=== PATIENT | female | born 1965 | race Caucasian/White ===

== ENCOUNTER 2019-06-30 11:44 | Outpatient (CLI) | payer BC, MEDICAID, SELFPAY ==
[2019-06-30 12:26] LABS: Basophils % 0.6 %; Eosinophils # 0.1 10^3/uL (0.0-0.8); Hematocrit 41.2 % (37.0-47.0); Hemoglobin 13.6 g/dL (11.5-15.3); Lymphocytes # 1.3 10^3/uL (0.8-4.8); Lymphocytes % 25.6 %; Mean Corpuscular Hemoglobin 30.9 pg (28.0-34.0); Mean Corpuscular Volume 93.6 fL (81-99); Mean Platelet Volume 10.2 fL (7.4-10.4); Monocytes # 0.5 10^3/uL (0.2-0.9); Monocytes % 9.6 %; Neutrophils # 3.2 10^3/uL (1.8-7.7); Neutrophils % 62.8 %; Nucleated Red Blood Cells % 0 %; Platelet Count 289 10^3/cmm (130-400); Red Cell Distribution Width 11.8 % (12.1-15.1); White Blood Count 5.1 10^3/uL (4.0-10.0)
[2019-06-30 12:38] LABS: Alanine Aminotransferase 16 U/L (0-33); Albumin Level 4.5 g/dL (3.5-5.2); Alkaline Phosphatase 77 IU/L (35-105); Anion Gap 16.1 (5-19); Aspartate Amino Transferase 21 U/L (0-32); Blood Urea Nitrogen 10 mg/dL (6-20); Calcium 10.1 mg/dL (8.5-10.5); Carbon Dioxide 29 mmol/L (22-29); Chloride 98 mmol/L (98-107); Globulin 3.1 g/dL (1.3-4.6); Glomerular Filtration Rate 128.1 mL/min (90-130); Glucose 109 mg/dL (65-115); Potassium 4.1 mmol/L (3.5-5.1); Sodium 139 mmol/L (136-145); Total Bilirubin 0.4 mg/dL (0.15-1.2); Total Protein 7.6 g/dL (6.6-8.7)
--- NOTE | 2019-07-04 09:15 | ONC FU_ITS ---
Dr. Poe Patient Follow-Up Note Patient: Elsy Pohenix Unit #: [id number]: 1965 Dicatated By: Luis Poe M.D.Date of Visit:Jun 30, 2019 Onc Med Follow-up/Prog Note Chief Complaint: Breast cancer. History of Present Illness: This is a 53 year-old woman with grade 3 invasive ductal carcinoma of the left breast, stage IIA (T2, N0, M0), ER/PA negative and HER-2/sudhir nonamplified. This patient has been in good general health. She had presented with a painful lump in the lower medial left breast, which she first noticed at Thanksgiving time. She had been getting screening mammograms every 6 months, apparently due to having dense breast tissue not because of any suspicious findings. She had further evaluation with bilateral digital diagnostic mammogram and left breast ultrasound on 04/16/2016. The mammogram showed no findings other than some very nonspecific density in the deep inferomedial aspect of the left breast, thought perhaps to be the anterior aspect of a mass. Ultrasound showed an ill defined irregular 19 mm solid mass deeply in the inferomedial left breast composition against the chest wall. Evaluation of the axilla revealed only normal sized, benign-appearing lymph nodes. She will underwent ultrasound-guided needle core biopsy of the mass on 04/25/2016. Pathology showed grade 3 invasive ductal carcinoma. The breast prognostic profile showed the tumor to be ER and PA negative, both at 0%. HER-2/sudhir also was negative (0). The Ki-67 was high at 88%. Dr Poe had seen her initially on 05/15/2016. At that time she indicated she was not interested in pursuing breast conservation management. Her preference was to have bilateral mastectomy. There appeared to be no indication for neoadjuvant chemotherapy. On 06/18/2016 she underwent left total mastectomy with sentinel left axillary lymph node biopsy and prophylactic right simple mastectomy. Pathology showed poorly differentiated invasive ductal carcinoma with prominent lymphocytic response. It measured 2.4 cm in maximum diameter. The tumor was located 0.5 cm from the inferior margin, 1.5 cm from the deep margin, and greater than 8 cm from the superior margin. There was no involvement into intraparenchymal lymph nodes and there was no involvement in 1 sentinel axillary lymph node. Her disease thus was stage IIA (T2, N0, M0). She was given adjuvant chemotherapy with 4 cycles of cyclophosphamide/docetaxel. She received her cycle 1 treatment on 07/16/2016. It was complicated by grade 4 neutropenia, but she recovered uneventfully with Neupogen. She received prophylaxis with Neulasta on cycles 2 and 3, and her blood counts remained adequate. She completed her 4th cycle of treatment on 09/24/2016. She had subsequently become aware of a nodule in left breast reconstruction. Ultrsound was consistent with seroma or possibly abscess. She was managed expectantly. Her medical history is otherwise unremarkable. She has no other ongoing medical illnesses. She is a nonsmoker. She is 3/para 3, and she was 17 years old with her first . Her last menstrual period was in December 2014, and she has been having hot flashes. She had no oral contraceptive use. Postmenopausal hormone use was limited to occasional use of Premarin vaginal cream. INTERIM HISTORY: A repeat left breast ultrasound on 05/26/2017 showed no suspicious findings. She continued on observation/expectant management. She is seen for a scheduled visit. She has been feeling pretty good generally. She is in the process of changing jobs, and her energy has been somewhat better. She has normal activity. ECOG score is 0. Her appetite is good. She has not had fever or night sweats, but she does have hot flashes at night. She has no shortness of breath, cough, or chest pain. She has no GI or complaints. She continues to have pain in her back and in her knees. She also has some generalized pain from working. She has no focal neurologic symptoms. Medications: ALPRAZolam 1 Tablet (of 0.5 mg) Oral b.i.d., Docusate Sodium 1 Tablet (of 100 mg) Oral daily PRN, Oxycodone-Acetaminophen 1 (10-325 mg) Tablet Oral q 4 hours PRN Allergies: No Known Allergies. Review of Systems: Constitutional - Her energy is somewhat better. She has normal activity. Her appetite is good and her weight is up a few pounds since her last visit. No fever, chills, or night sweat. She has hot flashes at night. ECOG score is 0, ENMT - No sinus congestion/drainage. No mouth sores. No sore throat or difficulty swallowing, Hematologic/Lymphatic - No abnormal bruising or bleeding, Respiratory - No shortness of breath. No cough. No pleuritic pain or hemoptysis, Cardiovascular - No angina pain. No palpitations, Gastrointestinal - No nausea or vomiting. No heartburn or acid reflux. No diarrhea or constipation. No blood in the stool or black stools, Genitourinary (F) - No dysuria or hematuria. No urinary frequency. No urgency or incontinence, Musculoskeletal - She has generalized pain, but mainly in her back and in her knees. It is associated with work, Integumentary - No skin complications, Neurologic - She has occasional headaches. No dizziness. No numbness/paresthesias or other focal neurologic symptoms, Psychiatric - She has some anxiety. No depression. No insomnia. Vital Signs: Performed on Jun 30, 2019 13:26 Height - 64.00 in Weight - 147.6 lbs (HIGH) BSA - 1.72 sq.m BMI - 25.34 Temperature - 97.6 F (LOW) Pulse - 90 /min Respiration - 18 /min BP - 129/88 mm(hg) O2 Sat - 100 % Pain - 0 Physical Examination: Constitutional - She looks good generally, Eyes - Sclerae nonicteric. Conjunctivae clear, ENMT - No lesions noted in the oral cavity, Hematologic/Lymphatic - No cervical or clavicular adenopathy, Respiratory - Lungs are clear with good air movement bilaterally, Cardiovascular - Heart rhythm is regular. There is no murmur, gallop, or rub noted, Breasts - There are no lesions noted in the left chest wall/reconstruction. There is no axillary adenopathy noted, Abdomen - Soft. Liver and spleen are not enlarged. There is no abdominal mass or ascites noted and there is no inguinal adenopathy, Extremities - No edema. Dorsalis pedis pulses are palpable bilaterally, Neurologic - No focal neurologic deficits noted. Lab/Imaging: Test performed on Jun 30, 2019 11:59 Sodium 139 mmol/L Potassium 4.1 mmol/L Chloride 98 mmol/L CO2 29 mmol/L Anion Gap 16.1 BUN 10 mg/dL Creatinine 0.5 mg/dL Cr Clearance (Est) 135.6400 mL/min eGFR 128.1 mL/min Glucose 109 mg/dL Calcium 10.1 mg/dL Protein, Total 7.6 g/dL Albumin 4.5 g/dL Globulin 3.1 g/dL Bilirubin, Total 0.4 mg/dL ALT (SGPT) 16 U/L AST (SGOT) 21 U/L Alkaline Phosphatase 77 IU/L WBC 5.1 10 3/uL RBC 4.40 10 6/uL HGB 13.6 g/dL HCT 41.2 % MCV 93.6 fL MCH 30.9 pg MCHC 33.0 g/dL RDW 11.8 % Platelet Count 289 10 3/cmm MPV 10.2 fL Neutrophils 3.2 10 3/uL Lymphocytes 1.3 10 3/uL Monocytes 0.5 10 3/uL Eosinophils 0.1 10 3/uL Basophils 0.0 10 3/uL Neutrophil % 62.8 % Lymphocyte % 25.6 % Monocyte % 9.6 % Eosinophil % 1.0 % Basophils % 0.6 % Impression: 1. This is a perimenopausal woman with grade 3 invasive ductal carcinoma of the left breast, stage IIA (T2, N0, M0), ER/PA negative and HER-2/sudhir nonamplified. 2. She underwent left total mastectomy with sentinel left axillary lymph node biopsy and prophylactic right simple mastectomy on 06/18/2016. 3. She was given adjuvant chemotherapy with 4 cycles of cyclophosphamide/docetaxel, completed on 09/24/2016. Her first cycle was complicated by grade 4 neutropenia, but she recovered uneventfully with Neupogen. With cycles 2, 3, and 4 her counts remained adequate with Neulasta prophylaxis. Other toxicity was limited to mild fatigue and mild nausea. She did have a 1 week delay with cycle 4, but that was at her own discretion. 4. She has chronic anxiety. Following completion of the chemotherapy she had presented with a palpable nodule in the left breast reconstruction. Ultrasound was consistent with seroma or possibly abscess. She was managed expectantly, and it subsequently resolved. She has since then remained on observation. During follow-up she continued to have fatigue and she also had some ongoing problems with anxiety/depression. Those symptoms have gradually improved, though she still has issues with anxiety. During subsequent follow-up she has had pain at times and there left chest wall/axillary area. She also has had some other musculoskeletal pain, most of which has been work related. Overall, she has been doing well clinically with no evidence of recurrence of the breast cancer. Plan: She remains on observation/expectant management. I will see her again in 6 months, or sooner as needed. Signed By: Luis Poe M.D. <<Signature on File>>
== END 2019-06-30 11:45 | disposition home or self-care (01) ==
LOC: ONCMED 11:45
PROVIDERS: Family Provider Nurse Practitioner Family; PCP Nurse Practitioner Family; Visit Provider Internal Medicine Medical Oncology
DX: Z08 Encounter for follow-up examination after completed treatment for malignant neoplasm (principal); Z85.3 Personal history of malignant neoplasm of breast; F41.9 Anxiety disorder, unspecified; Z79.891 Long term (current) use of opiate analgesic; Z92.21 Personal history of antineoplastic chemotherapy; Z90.13 Acquired absence of bilateral breasts and nipples
CPT/HCPCS: 36415; 80053; 85025; G0463

== ENCOUNTER 2019-12-29 12:54 | Outpatient (CLI) | payer MEDICAID, SELFPAY ==
[2019-12-29 13:21] LABS: Basophils # 0.1 10^3/uL (0.0-0.1); Basophils % 1.1 %; Eosinophils # 0.1 10^3/uL (0.0-0.8); Eosinophils % 1.5 %; Hematocrit 40.8 % (37.0-47.0); Hemoglobin 12.6 g/dL (11.5-15.3); Lymphocytes # 1.8 10^3/uL (0.8-4.8); Lymphocytes % 32.7 %; Mean Corpuscular HGB Conc 30.9 g/dL (30.0-36.0); Mean Corpuscular Hemoglobin 30.7 pg (28.0-34.0); Mean Corpuscular Volume 99.3 fL (81-99); Mean Platelet Volume 10.4 fL (7.4-10.4); Monocytes # 0.6 10^3/uL (0.2-0.9); Monocytes % 10.7 %; Neutrophils # 2.97 10^3/uL (1.8-7.7); Neutrophils % 53.8 %; Nucleated Red Blood Cells % 0 %; Platelet Count 279 10^3/cmm (130-400); Red Blood Count 4.11 10^6/uL (4.1-5.3); Red Cell Distribution Width 11.7 % (12.1-15.1); White Blood Count 5.5 10^3/uL (4.0-10.0)
[2019-12-29 13:41] LABS: Alanine Aminotransferase 16 U/L (0-33); Albumin Level 4.4 g/dL (3.5-5.2); Alkaline Phosphatase 67 IU/L (35-105); Anion Gap 12.1 (5-19); Aspartate Amino Transferase 25 U/L (0-32); Blood Urea Nitrogen 14 mg/dL (6-20); Calcium 9.4 mg/dL (8.5-10.5); Carbon Dioxide 29 mmol/L (22-29); Chloride 101 mmol/L (98-107); Globulin 2.5 g/dL (1.3-4.6); Glomerular Filtration Rate 86.6 mL/min (90-130); Glucose 106 mg/dL (65-115); Osmolality Calculated 283 mOsm/kg (285-295); Potassium 4.1 mmol/L (3.5-5.1); Sodium 138 mmol/L (136-145); Total Bilirubin 0.3 mg/dL (0.15-1.2); Total Protein 6.9 g/dL (6.6-8.7)
--- NOTE | 2019-12-31 18:51 | ONC FU_ITS ---
Dr. Poe Patient Follow-Up Note Patient: Elsy Phoenix Unit #: [id number]: 1965 Dicatated By: Luis Poe M.D.Date of Visit:Dec 29, 2019 Onc Med Follow-up/Prog Note Chief Complaint: Breast cancer. History of Present Illness: This is a 54 year-old woman with grade 3 invasive ductal carcinoma of the left breast, stage IIA (T2, N0, M0), ER/VT negative and HER-2/sudhir nonamplified. This patient has been in good general health. She had presented with a painful lump in the lower medial left breast, which she first noticed at Thanksgiving time. She had been getting screening mammograms every 6 months, apparently due to having dense breast tissue not because of any suspicious findings. She had further evaluation with bilateral digital diagnostic mammogram and left breast ultrasound on 04/16/2016. The mammogram showed no findings other than some very nonspecific density in the deep inferomedial aspect of the left breast, thought perhaps to be the anterior aspect of a mass. Ultrasound showed an ill defined irregular 19 mm solid mass deeply in the inferomedial left breast composition against the chest wall. Evaluation of the axilla revealed only normal sized, benign-appearing lymph nodes. She will underwent ultrasound-guided needle core biopsy of the mass on 04/25/2016. Pathology showed grade 3 invasive ductal carcinoma. The breast prognostic profile showed the tumor to be ER and VT negative, both at 0%. HER-2/sudhir also was negative (0). The Ki-67 was high at 88%. Dr Poe had seen her initially on 05/15/2016. At that time she indicated she was not interested in pursuing breast conservation management. Her preference was to have bilateral mastectomy. There appeared to be no indication for neoadjuvant chemotherapy. On 06/18/2016 she underwent left total mastectomy with sentinel left axillary lymph node biopsy and prophylactic right simple mastectomy. Pathology showed poorly differentiated invasive ductal carcinoma with prominent lymphocytic response. It measured 2.4 cm in maximum diameter. The tumor was located 0.5 cm from the inferior margin, 1.5 cm from the deep margin, and greater than 8 cm from the superior margin. There was no involvement into intraparenchymal lymph nodes and there was no involvement in 1 sentinel axillary lymph node. Her disease thus was stage IIA (T2, N0, M0). She was given adjuvant chemotherapy with 4 cycles of cyclophosphamide/docetaxel. She received her cycle 1 treatment on 07/16/2016. It was complicated by grade 4 neutropenia, but she recovered uneventfully with Neupogen. She received prophylaxis with Neulasta on cycles 2 and 3, and her blood counts remained adequate. She completed her 4th cycle of treatment on 09/24/2016. She had subsequently become aware of a nodule in left breast reconstruction. Ultrsound was consistent with seroma or possibly abscess. It resolved with conservative management. She was then followed on observation for the breast cancer. Her medical history is otherwise unremarkable. She has no other ongoing medical illnesses. She is a nonsmoker. She is 3/para 3, and she was 17 years old with her first . Her last menstrual period was in December 2014. She had no oral contraceptive use. Postmenopausal hormone use was limited to occasional use of Premarin vaginal cream. INTERIM HISTORY: She is seen for a scheduled visit. She has been feeling pretty good generally. Her main complaint is that she has been having more anxiety. She has had episodes in which she has woken up at night feeling panicked. She has good energy, and she has gone back to work. ECOG score is 0. She has good appetite. She has not had fever. She still has some hot flashes and sweating. She has no shortness of breath, cough, or chest pain. She has had some heartburn, mainly at nighttime. She has no other GI or complaints. She does have some pain in her knees. She has no other joint or bone pain. She does not complain of headache or dizziness. She has no focal neurologic symptoms. Medications: ALPRAZolam 1 Tablet (of 0.5 mg) Oral b.i.d., Docusate Sodium 1 Tablet (of 100 mg) Oral daily PRN, Oxycodone-Acetaminophen 1 (10-325 mg) Tablet Oral q 4 hours PRN Allergies: No Known Allergies. Review of Systems: Constitutional - She has good energy. She has gone back to work. Appetite is good and weight is stable. No fever. She does have hot flashes and sweating. ECOG score is 0, ENMT - No sinus congestion/drainage. No mouth sores. No sore throat or difficulty swallowing, Hematologic/Lymphatic - No abnormal bruising or bleeding, Respiratory - No shortness of breath. No cough. No pleuritic pain or hemoptysis, Cardiovascular - No angina pain. No palpitations, Gastrointestinal - No nausea or vomiting. She has some heartburn, usually at night. No diarrhea or constipation. No blood in the stool or black stools, Genitourinary (F) - No dysuria or hematuria. No urinary frequency. No urgency or incontinence, Musculoskeletal - She has pain in her knees. No other joint or bone pain, Integumentary - , Neurologic - No headache or dizziness. No numbness or tingling. No other focal neurologic symptoms, Psychiatric - She is having more anxiety. No depression. She does not sleep well. She has been waking up feeling panicked. Vital Signs: Performed on Dec 29, 2019 14:42 Height - 64.00 in Weight - 152.2 lbs (HIGH) BSA - 1.74 sq.m BMI - 26.13 Temperature - 98.2 F (LOW) Pulse - 100 /min Respiration - 18 /min BP - 131/85 mm(hg) O2 Sat - 98 % Pain - 0 Fatigue - 0 Physical Examination: Constitutional - She looks good generally, Eyes - Sclerae nonicteric. Conjunctivae clear, ENMT - No lesions noted in the oral cavity, Hematologic/Lymphatic - No cervical, clavicular, or axillary adenopathy, Respiratory - Lungs are clear with good air movement bilaterally, Cardiovascular - Heart rhythm is regular. There is no murmur, gallop, or rub noted, Abdomen - Soft. Liver and spleen are not enlarged. There is no abdominal mass or ascites noted and there is no inguinal adenopathy, Extremities - No edema, Neurologic - No focal neurologic deficits noted. Lab/Imaging: Test performed on Dec 29, 2019 13:08 Sodium 138 mmol/L Potassium 4.1 mmol/L Chloride 101 mmol/L CO2 29 mmol/L Anion Gap 12.1 BUN 14 mg/dL Creatinine 0.7 mg/dL Cr Clearance (Est) 95.7500 mL/min eGFR 86.6 mL/min Glucose 106 mg/dL Calcium 9.4 mg/dL Protein, Total 6.9 g/dL Albumin 4.4 g/dL Globulin 2.5 g/dL Bilirubin, Total 0.3 mg/dL ALT (SGPT) 16 U/L AST (SGOT) 25 U/L Alkaline Phosphatase 67 IU/L WBC 5.5 10 3/uL RBC 4.11 10 6/uL HGB 12.6 g/dL HCT 40.8 % MCV 99.3 fL MCH 30.7 pg MCHC 30.9 g/dL RDW 11.7 % Platelet Count 279 10 3/cmm MPV 10.4 fL Neutrophils 2.97 10 3/uL Lymphocytes 1.8 10 3/uL Monocytes 0.6 10 3/uL Eosinophils 0.1 10 3/uL Basophils 0.1 10 3/uL Neutrophil % 53.8 % Lymphocyte % 32.7 % Monocyte % 10.7 % Eosinophil % 1.5 % Basophils % 1.1 % NRBC % 0 % Impression: 1. This is a perimenopausal woman with grade 3 invasive ductal carcinoma of the left breast, stage IIA (T2, N0, M0), ER/VT negative and HER-2/sudhir nonamplified. 2. She underwent left total mastectomy with sentinel left axillary lymph node biopsy and prophylactic right simple mastectomy on 06/18/2016. 3. She was given adjuvant chemotherapy with 4 cycles of cyclophosphamide/docetaxel, completed on 09/24/2016. Her first cycle was complicated by grade 4 neutropenia, but she recovered uneventfully with Neupogen. With cycles 2, 3, and 4 her counts remained adequate with Neulasta prophylaxis. Other toxicity was limited to mild fatigue and mild nausea. She did have a 1 week delay with cycle 4, but that was at her own discretion. 4. She has chronic anxiety. Following completion of the chemotherapy she had presented with a palpable nodule in the left breast reconstruction. Ultrasound was consistent with seroma or possibly abscess. She was managed expectantly, and it subsequently resolved. She has since then remained on observation. During follow-up she continued to have some fatigue and she also had some ongoing problems with anxiety/depression. Those symptoms had gradually improved, though she still had issues with anxiety. She also at times was having musculoskeletal pain, including the left chest area. Her pain, though, has been adequately managed with medication, and her energy level seems much better. She has been having more problems with her anxiety. There has been no evidence, though, of recurrence of the breast cancer. Plan: She remains on observation/expectant management for the breast cancer. I will have her restart citalopram 20 mg daily, and I will plan to escalate the dosage in 2 weeks if her anxiety symptoms are not improved. In the meantime, she will continue the alprazolam as needed. She will be scheduled for a follow-up visit in 6 months. Signed By: Luis Poe M.D. <<Signature on File>>
== END 2019-12-29 12:55 | disposition home or self-care (01) ==
LOC: ONCMED 12:56
PROVIDERS: PCP Nurse Practitioner Family; Visit Provider Internal Medicine Medical Oncology
DX: Z08 Encounter for follow-up examination after completed treatment for malignant neoplasm (principal); Z85.3 Personal history of malignant neoplasm of breast; F41.9 Anxiety disorder, unspecified; Z90.13 Acquired absence of bilateral breasts and nipples; Z92.21 Personal history of antineoplastic chemotherapy
CPT/HCPCS: 36415; 80053; 85025; 99214

== ENCOUNTER 2020-06-14 12:25 | Outpatient (CLI) | payer MEDICAID, SELFPAY ==
[2020-06-14 12:45] LABS: Basophils % 0.7 %; Eosinophils # 0.1 10^3/uL (0.0-0.8); Eosinophils % 1.8 %; Hematocrit 45.8 % (37.0-47.0); Hemoglobin 14.7 g/dL (11.5-15.3); Lymphocytes # 1.3 10^3/uL (0.8-4.8); Mean Corpuscular HGB Conc 32.1 g/dL (30.0-36.0); Mean Corpuscular Hemoglobin 31.3 pg (28.0-34.0); Mean Corpuscular Volume 97.4 fL (81-99); Mean Platelet Volume 10.2 fL (7.4-10.4); Monocytes # 0.5 10^3/uL (0.2-0.9); Monocytes % 11.9 %; Neutrophils # 2.55 10^3/uL (1.8-7.7); Neutrophils % 56.4 %; Nucleated Red Blood Cells % 0 %; Platelet Count 266 10^3/cmm (130-400); Red Cell Distribution Width 11.6 % (12.1-15.1); White Blood Count 4.5 10^3/uL (4.0-10.0)
[2020-06-14 13:11] LABS: Alanine Aminotransferase 19 U/L (0-33); Albumin Level 4.8 g/dL (3.5-5.2); Alkaline Phosphatase 85 IU/L (35-105); Blood Urea Nitrogen 12 mg/dL (6-20); Calcium 9.7 mg/dL (8.5-10.5); Carbon Dioxide 26 mmol/L (22-29); Chloride 99 mmol/L (98-107); Globulin 2.9 g/dL (1.3-4.6); Glomerular Filtration Rate 127.6 mL/min (90-130); Glucose 91 mg/dL (65-115); Osmolality Calculated 279 mOsm/kg (285-295); Sodium 135 mmol/L (136-145); Total Bilirubin 0.5 mg/dL (0.15-1.2); Total Protein 7.7 g/dL (6.6-8.7)
[2020-06-14 13:15] LABS: Anion Gap 13.9 (5-19); Aspartate Amino Transferase 24 U/L (0-32); Potassium 3.9 mmol/L (3.5-5.1)
--- NOTE | 2020-06-16 11:29 | ONC FU_ITS ---
Dr. Poe Patient Follow-Up Note Patient: Elsy Phoenix Unit #: [id number]: [id number] Dicatated By: Luis Poe M.D.Date of Visit:Jun 14, 2020 Onc Med Follow-up/Prog Note Chief Complaint: Breast cancer. History of Present Illness: This is a 54 year-old woman with grade 3 invasive ductal carcinoma of the left breast, stage IIA (T2, N0, M0), ER/AR negative and HER-2/sudhir nonamplified. This patient has been in good general health. She had presented with a painful lump in the lower medial left breast, which she first noticed at Thanksgiving time. She had been getting screening mammograms every 6 months, apparently due to having dense breast tissue not because of any suspicious findings. She had further evaluation with bilateral digital diagnostic mammogram and left breast ultrasound on 04/16/2016. The mammogram showed no findings other than some very nonspecific density in the deep inferomedial aspect of the left breast, thought perhaps to be the anterior aspect of a mass. Ultrasound showed an ill defined irregular 19 mm solid mass deeply in the inferomedial left breast composition against the chest wall. Evaluation of the axilla revealed only normal sized, benign-appearing lymph nodes. She will underwent ultrasound-guided needle core biopsy of the mass on 04/25/2016. Pathology showed grade 3 invasive ductal carcinoma. The breast prognostic profile showed the tumor to be ER and AR negative, both at 0%. HER-2/sudhir also was negative (0). The Ki-67 was high at 88%. I had seen her initially on 05/15/2016. At that time she indicated she was not interested in pursuing breast conservation management. Her preference was to have bilateral mastectomy. There appeared to be no indication for neoadjuvant chemotherapy. On 06/18/2016 she underwent left total mastectomy with axillary sentinel lymph node biopsy and prophylactic right simple mastectomy. Pathology showed poorly differentiated invasive ductal carcinoma with prominent lymphocytic response. It measured 2.4 cm in maximum diameter. The tumor was located 0.5 cm from the inferior margin, 1.5 cm from the deep margin, and greater than 8 cm from the superior margin. There was no involvement into intraparenchymal lymph nodes and there was no involvement in 1 axillary sentinel lymph node. Her disease thus was stage IIA (T2, N0, M0). She was given adjuvant chemotherapy with 4 cycles of cyclophosphamide/docetaxel. She received her cycle 1 treatment on 07/16/2016. It was complicated by grade 4 neutropenia, but she recovered uneventfully with Neupogen. She received prophylaxis with Neulasta on cycles 2 and 3, and her blood counts remained adequate. She completed her 4th cycle of treatment on 09/24/2016. She had subsequently become aware of a nodule in left breast reconstruction. Ultrsound was consistent with seroma or possibly abscess. It resolved with conservative management. She was then followed on observation for the breast cancer. Her medical history is otherwise unremarkable. She has no other ongoing medical illnesses. She is a nonsmoker. She is 3/para 3, and she was 17 years old with her first . Her last menstrual period was in December 2014. She had no oral contraceptive use. Postmenopausal hormone use was limited to occasional use of Premarin vaginal cream. INTERIM HISTORY: She is seen for a scheduled visit. She has been feeling pretty good generally. She was diagnosed with COVID-19 virus infection in February. She has had an uneventful recovery. Her energy is good now and she has normal activity. Her appetite comes and goes. She does not have fever or night sweats. She does have some hot flashes. She has no shortness of breath, cough, or chest pain. She has no GI/ complaints other than frequent urination. She continues to have pain in her knees, legs, and feet. 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 She does have some headaches. She does not have focal neurologic symptoms. She was not able to tolerate citalopram due to headaches, but her anxiety/depression has improved. Medications: ALPRAZolam 1 Tablet (of 0.5 mg) Oral b.i.d., Docusate Sodium 1 Tablet (of 100 mg) Oral daily PRN, Oxycodone-Acetaminophen 1 (10-325 mg) Tablet Oral q 4 hours PRN Allergies: No Known Allergies. Vital Signs: Performed on Jun 14, 2020 14:01 Height - 64.00 in Weight - 145.4 lbs (LOW) BSA - 1.71 sq.m BMI - 24.96 Temperature - 97.8 F (LOW) Pulse - 106 /min (HIGH) Respiration - 16 /min BP - 130/93 mm(hg) O2 Sat - 98 % Pain - 0 Physical Examination: Constitutional - She looks good generally, Eyes - Sclerae nonicteric. Conjunctivae clear, ENMT - No lesions noted in the oral cavity, Hematologic/Lymphatic - No cervical or clavicular adenopathy, Respiratory - Lungs are clear with good air movement bilaterally, Cardiovascular - Heart rhythm is regular. There is no murmur, gallop, or rub noted, Breasts - There are no lesions noted in the chest wall/reconstruction bilaterally. There is no axillary adenopathy, Abdomen - Soft. Liver and spleen are not enlarged. There is no abdominal mass or ascites noted and there is no inguinal adenopathy, Extremities - No edema. Dorsalis pedis pulses are palpable bilaterally, Neurologic - No focal neurologic deficits noted. Lab/Imaging: Test performed on Jun 14, 2020 12:37 Sodium 135 mmol/L Potassium 3.9 mmol/L Chloride 99 mmol/L CO2 26 mmol/L Anion Gap 13.9 BUN 12 mg/dL Creatinine 0.5 mg/dL Cr Clearance (Est) 134.0500 mL/min eGFR 127.6 mL/min Glucose 91 mg/dL Osmolality - Calculated 279 mOsm/kg Calcium 9.7 mg/dL Protein, Total 7.7 g/dL Albumin 4.8 g/dL Globulin 2.9 g/dL Bilirubin, Total 0.5 mg/dL ALT (SGPT) 19 U/L AST (SGOT) 24 U/L Alkaline Phosphatase 85 IU/L WBC 4.5 10 3/uL RBC 4.70 10 6/uL HGB 14.7 g/dL HCT 45.8 % MCV 97.4 fL MCH 31.3 pg MCHC 32.1 g/dL RDW 11.6 % Platelet Count 266 10 3/cmm MPV 10.2 fL Neutrophils 2.55 10 3/uL Lymphocytes 1.3 10 3/uL Monocytes 0.5 10 3/uL Eosinophils 0.1 10 3/uL Basophils 0.0 10 3/uL Neutrophil % 56.4 % Lymphocyte % 29.0 % Monocyte % 11.9 % Eosinophil % 1.8 % Basophils % 0.7 % NRBC % 0 % Problem List: 1. Grade 3 invasive ductal carcinoma of the left breast, stage IIA (T2, N0, M0), ER/AR negative and HER-2/sudhir nonamplified. She underwent left total mastectomy with axillary sentinel lymph node biopsy and prophylactic right simple mastectomy on 06/18/2016. 2. She has had chronic pain in the lower extremities following completion of adjuvant chemotherapy. 3. She has chronic anxiety. Problems Addressed with this Encounter and Plan: 1. Grade 3 invasive ductal carcinoma of the left breast, stage IIA (T2, N0, M0), ER/AR negative and HER-2/sudhir nonamplified. She underwent left total mastectomy with axillary sentinel lymph node biopsy and prophylactic right simple mastectomy on 06/18/2016. She was given adjuvant chemotherapy with 4 cycles of cyclophosphamide/docetaxel, completed on 09/24/2016. She has continued observation/expectant management following completion of the adjuvant chemotherapy. At this point she appears to be doing well clinically. Thus far there has been no evidence of recurrence of the breast cancer. She remains on observation/expectant management. I will see her again in 6 months. 2. She has had chronic pain in her legs and feet. 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 It is managed adequately with oxycodone/APAP. It will be continued at the same dosage. 3. She has chronic anxiety. She had poor tolerance for citalopram. It is being managed adequately with alprazolam, which also will be continued at the same dosage. Signed By: Luis Poe M.D. <<Signature on File>>
== END 2020-06-14 12:26 | disposition home or self-care (01) ==
LOC: ONCMED 12:26
PROVIDERS: PCP Nurse Practitioner Family; Visit Provider Internal Medicine Medical Oncology
DX: C50.812 Malignant neoplasm of overlapping sites of left female breast (principal); Z17.1 Estrogen receptor negative status [ER-]; G89.29 Other chronic pain; M79.604 Pain in right leg; M79.605 Pain in left leg; F41.9 Anxiety disorder, unspecified; Z92.21 Personal history of antineoplastic chemotherapy; Z79.899 Other long term (current) drug therapy
CPT/HCPCS: 36415; 80053; 85025; 99214

== ENCOUNTER 2020-12-12 13:12 | Outpatient (CLI) | payer MEDICAID, SELFPAY ==
--- NOTE | 2020-12-16 12:24 | ONC FU_ITS ---
Dr. Poe Patient Follow-Up Note Patient: Elsy Phoenix Unit #: [id number]: 1965 Dicatated By: Luis Poe M.D.Date of Visit:Dec 12, 2020 Onc Med Follow-up/Prog Note Chief Complaint: Breast cancer. History of Present Illness: This is a 54 year-old woman with grade 3 invasive ductal carcinoma of the left breast, stage IIA (T2, N0, M0), ER/PA negative and HER-2/sudhir nonamplified. This patient has been in good general health. She had presented with a painful lump in the lower medial left breast, which she first noticed at Thanksgiving time. She had been getting screening mammograms every 6 months, apparently due to having dense breast tissue not because of any suspicious findings. She had further evaluation with bilateral digital diagnostic mammogram and left breast ultrasound on 04/16/2016. The mammogram showed no findings other than some very nonspecific density in the deep inferomedial aspect of the left breast, thought perhaps to be the anterior aspect of a mass. Ultrasound showed an ill defined irregular 19 mm solid mass deeply in the inferomedial left breast composition against the chest wall. Evaluation of the axilla revealed only normal sized, benign-appearing lymph nodes. She will underwent ultrasound-guided needle core biopsy of the mass on 04/25/2016. Pathology showed grade 3 invasive ductal carcinoma. The breast prognostic profile showed the tumor to be ER and PA negative, both at 0%. HER-2/sudhir also was negative (0). The Ki-67 was high at 88%. I had seen her initially on 05/15/2016. At that time she indicated she was not interested in pursuing breast conservation management. Her preference was to have bilateral mastectomy. There appeared to be no indication for neoadjuvant chemotherapy. On 06/18/2016 she underwent left total mastectomy with axillary sentinel lymph node biopsy and prophylactic right simple mastectomy. Pathology showed poorly differentiated invasive ductal carcinoma with prominent lymphocytic response. It measured 2.4 cm in maximum diameter. The tumor was located 0.5 cm from the inferior margin, 1.5 cm from the deep margin, and greater than 8 cm from the superior margin. There was no involvement into intraparenchymal lymph nodes and there was no involvement in 1 axillary sentinel lymph node. Her disease thus was stage IIA (T2, N0, M0). She was given adjuvant chemotherapy with 4 cycles of cyclophosphamide/docetaxel. She received her cycle 1 treatment on 07/16/2016. It was complicated by grade 4 neutropenia, but she recovered uneventfully with Neupogen. She received prophylaxis with Neulasta on cycles 2 and 3, and her blood counts remained adequate. She completed her 4th cycle of treatment on 09/24/2016. She had subsequently become aware of a nodule in left breast reconstruction. Ultrsound was consistent with seroma or possibly abscess. It resolved with conservative management. She was then followed on observation for the breast cancer. Her medical history is otherwise unremarkable. She has no other ongoing medical illnesses. She is a nonsmoker. She is 3/para 3, and she was 17 years old with her first . Her last menstrual period was in December 2014. She had no oral contraceptive use. Postmenopausal hormone use was limited to occasional use of Premarin vaginal cream. INTERIM HISTORY: She is seen for a scheduled visit. She says she has been feeling good. 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 She does have somewhat limited activity due to pain in her knees and in her lower back. She also has some residual neuropathy pain. ECOG score is 1. She has good appetite. She has not had fever or night sweats. She has some hot flashes, but not as bad. She has no shortness of breath, cough, or chest pain. She has no GI or complaints. She does not complain of headache or dizziness. She does have ongoing problems with anxiety. Medications: ALPRAZolam 1 Tablet (of 0.5 mg) Oral b.i.d., Docusate Sodium 1 Tablet (of 100 mg) Oral daily PRN, Oxycodone-Acetaminophen 1 (10-325 mg) Tablet Oral q 4 hours PRN Allergies: No Known Allergies. Vital Signs: Performed on Dec 12, 2020 13:56 Height - 64.00 in Weight - 150 lbs (HIGH) BSA - 1.73 sq.m BMI - 25.75 Temperature - 98.2 F (LOW) Pulse - 83 /min Respiration - 18 /min BP - 130/84 mm(hg) O2 Sat - 96 % Pain - 0 Fatigue - 0 Physical Examination: Constitutional - She looks good generally, Eyes - Sclerae nonicteric. Conjunctivae clear, ENMT - No lesions noted in the oral cavity, Hematologic/Lymphatic - No cervical, clavicular, or axillary adenopathy, Respiratory - Lungs are clear with good air movement bilaterally, Cardiovascular - Heart rhythm is regular. There is no murmur, gallop, or rub noted, Abdomen - Soft. Liver and spleen are not enlarged. There is no abdominal mass or ascites noted and there is no inguinal adenopathy, Extremities - No edema, Neurologic - No focal neurologic deficits noted. Problem List: 1. Grade 3 invasive ductal carcinoma of the left breast, stage IIA (T2, N0, M0), ER/PA negative and HER-2/sudhir nonamplified. She underwent left total mastectomy with axillary sentinel lymph node biopsy and prophylactic right simple mastectomy on 06/18/2016. 2. She has had chronic pain in the lower extremities following completion of adjuvant chemotherapy. 3. She has chronic anxiety. Problems Addressed with this Encounter and Plan: 1. Patient with grade 3 invasive ductal carcinoma of the left breast, stage IIA (T2, N0, M0), ER/PA negative and HER-2/sudhir nonamplified. She underwent left total mastectomy with axillary sentinel lymph node biopsy and prophylactic right simple mastectomy on 06/18/2016. She was given adjuvant chemotherapy with 4 cycles of cyclophosphamide/docetaxel, completed on 09/24/2016. She has continued observation/expectant management following completion of the adjuvant chemotherapy. Overall she hs been doing well clinically. She has somewhat limited activity, but thus far there has been no evidence of recurrence of the breast cancer. She continues expectant management. I will see her again in 6 months. 2. She has had chronic pain in her legs and feet. 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 It is managed adequately with oxycodone/APAP. 3. She has chronic anxiety. She had poor tolerance for citalopram. It is being managed adequately with alprazolam, which will be continued at the same dosage. Signed By: Luis Poe M.D. <<Signature on File>>
== END 2020-12-12 13:13 | disposition home or self-care (01) ==
PROVIDERS: PCP Nurse Practitioner Family; Visit Provider Internal Medicine Medical Oncology
DX: Z08 Encounter for follow-up examination after completed treatment for malignant neoplasm (principal); Z85.3 Personal history of malignant neoplasm of breast; Z90.11 Acquired absence of right breast and nipple; Z90.12 Acquired absence of left breast and nipple; M79.605 Pain in left leg; M79.604 Pain in right leg; G89.29 Other chronic pain; F41.9 Anxiety disorder, unspecified; Z92.21 Personal history of antineoplastic chemotherapy; Z79.899 Other long term (current) drug therapy
CPT/HCPCS: 99214

== ENCOUNTER 2021-04-02 16:08 | Outpatient (CLI) | payer MEDICAID, SELFPAY ==
--- NOTE | 2021-04-03 07:33 | ONC FU_ITS ---
Dr. Poe Patient Follow-Up Note Patient: Elsy Phoenix Unit #: [id number]: 1965 Dicatated By: Luis Poe M.D.Date of Visit:Apr 02, 2021 Onc Med Follow-up/Prog Note Chief Complaint: Breast cancer. History of Present Illness: This is a 55 year-old woman with grade 3 invasive ductal carcinoma of the left breast, stage IIA (T2, N0, M0), ER/NE negative and HER-2/sudhir nonamplified. This patient has been in good general health. She had presented with a painful lump in the lower medial left breast, which she first noticed at Thanksgiving time. She had been getting screening mammograms every 6 months, apparently due to having dense breast tissue not because of any suspicious findings. She had further evaluation with bilateral digital diagnostic mammogram and left breast ultrasound on 04/16/2016. The mammogram showed no findings other than some very nonspecific density in the deep inferomedial aspect of the left breast, thought perhaps to be the anterior aspect of a mass. Ultrasound showed an ill defined irregular 19 mm solid mass deeply in the inferomedial left breast composition against the chest wall. Evaluation of the axilla revealed only normal sized, benign-appearing lymph nodes. She will underwent ultrasound-guided needle core biopsy of the mass on 04/25/2016. Pathology showed grade 3 invasive ductal carcinoma. The breast prognostic profile showed the tumor to be ER and NE negative, both at 0%. HER-2/sudhir also was negative (0). The Ki-67 was high at 88%. I had seen her initially on 05/15/2016. At that time she indicated she was not interested in pursuing breast conservation management. Her preference was to have bilateral mastectomy. There appeared to be no indication for neoadjuvant chemotherapy. On 06/18/2016 she underwent left total mastectomy with axillary sentinel lymph node biopsy and prophylactic right simple mastectomy. Pathology showed poorly differentiated invasive ductal carcinoma with prominent lymphocytic response. It measured 2.4 cm in maximum diameter. The tumor was located 0.5 cm from the inferior margin, 1.5 cm from the deep margin, and greater than 8 cm from the superior margin. There was no involvement into intraparenchymal lymph nodes and there was no involvement in 1 axillary sentinel lymph node. Her disease thus was stage IIA (T2, N0, M0). She was given adjuvant chemotherapy with 4 cycles of cyclophosphamide/docetaxel. She received her cycle 1 treatment on 07/16/2016. It was complicated by grade 4 neutropenia, but she recovered uneventfully with Neupogen. She received prophylaxis with Neulasta on cycles 2 and 3, and her blood counts remained adequate. She completed her 4th cycle of treatment on 09/24/2016. She had subsequently become aware of a nodule in left breast reconstruction. Ultrsound was consistent with seroma or possibly abscess. It resolved with conservative management. She was then followed on observation for the breast cancer. Her medical history is otherwise unremarkable. She has no other ongoing medical illnesses. She is a nonsmoker. She is 3/para 3, and she was 17 years old with her first . Her last menstrual period was in December 2014. She had no oral contraceptive use. Postmenopausal hormone use was limited to occasional use of Premarin vaginal cream. INTERIM HISTORY: She is seen for a scheduled visit. She has been feeling pretty good generally. She does have some fatigue, but she is working and she has normal activity. Her ECOG score is 0. Her appetite is good. She has no fever or night sweats. She sometimes has hot flashes. She has not had sore mouth or throat. She does not complain of cough, and she has not had shortness of breath or chest pain. She has no GI or complaints. She continues to have some joint pain, especially in her knees, and she has lower back pain. She has some residual neuropathy in her legs and feet. She is getting some benefit wearing compression stockings. Medications: ALPRAZolam 1 Tablet (of 0.5 mg) Oral b.i.d., Docusate Sodium 1 Tablet (of 100 mg) Oral daily PRN, Oxycodone-Acetaminophen 1 (10-325 mg) Tablet Oral q 4 hours PRN Allergies: No Known Allergies. Vital Signs: Performed on Apr 02, 2021 16:24 Height - 64.00 in Weight - 142 lbs (LOW) BSA - 1.69 sq.m BMI - 24.37 Temperature - 97.7 F (LOW) Pulse - 102 /min (HIGH) Respiration - 18 /min BP - 144/89 mm(hg) (HIGH) O2 Sat - 98 % Pain - 0 Fatigue - 3 Physical Examination: Constitutional - She looks good generally, Eyes - Sclerae nonicteric. Conjunctivae clear, ENMT - No lesions noted in the oral cavity, Hematologic/Lymphatic - No cervical, clavicular, or axillary adenopathy, Respiratory - Lungs are clear with good air movement bilaterally, Cardiovascular - Heart rhythm is regular. There is no murmur, gallop, or rub noted, Abdomen - Soft. Liver and spleen are not enlarged. There is no abdominal mass or ascites noted and there is no inguinal adenopathy, Extremities - No edema, Neurologic - No focal neurologic deficits noted. Problem List: 1. Grade 3 invasive ductal carcinoma of the left breast, stage IIA (T2, N0, M0), ER/NE negative and HER-2/sudhir nonamplified. She underwent left total mastectomy with axillary sentinel lymph node biopsy and prophylactic right simple mastectomy on 06/18/2016. 2. She has had chronic pain in the lower extremities following completion of adjuvant chemotherapy. 3. She has chronic anxiety. Problems Addressed with this Encounter and Plan: 1. Patient with grade 3 invasive ductal carcinoma of the left breast, stage IIA (T2, N0, M0), ER/NE negative and HER-2/sudhir nonamplified. She underwent left total mastectomy with axillary sentinel lymph node biopsy and prophylactic right simple mastectomy on 06/18/2016. She was given adjuvant chemotherapy with 4 cycles of cyclophosphamide/docetaxel, completed on 09/24/2016. She has continued observation/expectant management following completion of the adjuvant chemotherapy. Overall she hs been doing well clinically. Thus far during followup there has been no evidence of recurrence of the breast cancer. She continues expectant management. I will see her again in 6 months. 2. She has had chronic pain in her legs and feet. 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 It is managed adequately with oxycodone/APAP. 3. She has chronic anxiety. She had poor tolerance for citalopram. It is being managed adequately with alprazolam, which will be continued at the same dosage. Signed By: Luis Poe M.D. <<Signature on File>>
== END 2021-04-02 16:09 | disposition home or self-care (01) ==
LOC: ONCMED 16:10
PROVIDERS: PCP Nurse Practitioner Family; Visit Provider Internal Medicine Medical Oncology
DX: Z08 Encounter for follow-up examination after completed treatment for malignant neoplasm (principal); Z85.3 Personal history of malignant neoplasm of breast; Z90.13 Acquired absence of bilateral breasts and nipples; G62.0 Drug-induced polyneuropathy; T45.1X5D Adverse effect of antineoplastic and immunosuppressive drugs, subsequent encounter; F41.9 Anxiety disorder, unspecified; Z79.899 Other long term (current) drug therapy; Z92.21 Personal history of antineoplastic chemotherapy
CPT/HCPCS: 99214

== ENCOUNTER 2021-06-11 15:25 | Outpatient (CLI) | payer OTHER, MEDICAID, SELFPAY ==
[2021-06-11 16:03] LABS: Basophils # 0.1 10^3/uL (0.0-0.1); Eosinophils # 0.2 10^3/uL (0.0-0.8); Eosinophils % 3.1 %; Hemoglobin 12.4 g/dL (11.5-15.3); Lymphocytes # 1.9 10^3/uL (0.8-4.8); Lymphocytes % 37.5 %; Mean Corpuscular HGB Conc 32.6 g/dL (30.0-36.0); Mean Corpuscular Hemoglobin 30.6 pg (28.0-34.0); Mean Corpuscular Volume 93.8 fl (81-99); Mean Platelet Volume 10.6 fL (7.4-10.4); Monocytes # 0.6 10^3/uL (0.2-0.9); Monocytes % 11.8 %; Neutrophils # 2.39 10^3/uL (1.8-7.7); Neutrophils % 46.4 %; Nucleated Red Blood Cells % 0 %; Platelet Count 262 10^3/cmm (130-400); Red Blood Count 4.05 10^6/uL (4.1-5.3); Red Cell Distribution Width 11.1 % (12.1-15.1); White Blood Count 5.2 10^3/uL (4.0-10.0)
[2021-06-11 16:40] LABS: Alanine Aminotransferase 15 U/L (0-33); Albumin Level 4.4 g/dL (3.5-5.2); Alkaline Phosphatase 85 IU/L (35-105); Anion Gap 11.8 (5-19); Aspartate Amino Transferase 24 U/L (0-32); Blood Urea Nitrogen 14 mg/dL (6-20); Calcium 8.7 mg/dL (8.5-10.5); Carbon Dioxide 27 mmol/L (22-29); Chloride 104 mmol/L (98-107); Globulin 2.5 g/dL (1.3-4.6); Glucose 88 mg/dL (65-115); Osmolality Calculated 288 mOsm/kg (285-295); Potassium 3.8 mmol/L (3.5-5.1); Sodium 139 mmol/L (136-145); Total Bilirubin 0.2 mg/dL (0.15-1.2); Total Protein 6.9 g/dL (6.6-8.7)
== END 2021-06-11 15:26 | disposition home or self-care (01) ==
LOC: ONCMED 15:33
PROVIDERS: PCP Nurse Practitioner Family; Visit Provider Internal Medicine Medical Oncology
DX: Z85.3 Personal history of malignant neoplasm of breast (principal)
CPT/HCPCS: 36415; 80053; 85025

== ENCOUNTER 2021-07-15 15:29 | Outpatient (CLI) | payer OTHER, MEDICAID, SELFPAY ==
--- NOTE | 2021-07-15 15:54 | CT_ITS ---
WS: [id number] CT ABDOMEN AND PELVIS WITH CONTRAST HISTORY: BREAST CANCER, PAIN IN LOWER ABDOMEN BOTH SIDES TECHNIQUE: Imaging performed of the abdomen and pelvis with IV contrast. Single phase imaging of the abdomen. Coronal and sagittal reformats are submitted. All CT scans at [facility] use at [address] one of these dose optimization techniques: automated exposure control; mA and/or kV adjustment per patient size (includes targeted exams where dose is matched to clinical indication); or iterative re construction. IV CONTRAST: Omnipaque 300; 95 mL IV. Oral contrast: Yes. DLP: 1233.86 mGy.cm COMPARISON: None available. Lower thorax: Lung bases are clear. Bilateral breast implants. Heart is normal size. Small hiatal her robina. Liver/biliary system: Normal size with no intrahepatic dilatation. Gallbladder: Normal. No gallstones or wall thickening. No pericholecystic fluid. Pancreas: Normal size pancreas and pancreatic duct. No adjacent inflammation. Spleen: Normal size spleen. No mass or infarct. Adrenal glands: Normal. Right kidney: Normal. Left kidney: Normal. Aorta: Normal. Lymphadenopathy: None. Free fluid: None. GI tract: Nondistended stomach. No small bowel obstruction. The appendix is normal. Moderate diffuse fecal retention throughout the colon. Tortuous overlapping loops of colon distally. Numerous divertic félix. No CT evidence for acute diverticulitis. Abdominal wall: Unremarkable abdominal wall. No hernia. Pelvis: Normal size anteverted uterus. No pelvic mass or adenopathy. No free fluid. Urinary bladder i s negative. Bones: Unremarkable. CT/CT abdomen pelvis w con* [id number] IMPRESSION: 1. No acute abdominal or pelvic abnormalities. 2. Distal colon diverticulosis without acute diverticulitis. No CT evidence fo r diverticulitis. 3. Normal appendix. 4. Moderate diffuse fecal retention/constipation. 5. Small hiatal hernia.
[2021-07-15] MEDS: iohexol 300 mg/mL 100 mL Btl IV (16:57)
[2021-07-15] MEDS: iohexol 300 mg/mL 50 mL Btl IV (16:58)
== END 2021-07-15 15:30 | disposition home or self-care (01) ==
LOC: RAD 15:30
PROVIDERS: PCP Nurse Practitioner Family; Visit Provider Internal Medicine Medical Oncology
DX: C50.312 Malignant neoplasm of lower-inner quadrant of left female breast (principal); K57.30 Diverticulosis of large intestine without perforation or abscess without bleeding; K59.00 Constipation, unspecified; K44.9 Diaphragmatic hernia without obstruction or gangrene
CPT/HCPCS: 74177

== ENCOUNTER 2021-10-16 12:49 | Oncology outpatient (recurring) (ONCR) | payer BC, MEDICAID, SELFPAY | END 2021-11-07 23:59 | disposition home or self-care (01) | PROVIDERS: PCP Nurse Practitioner Family; Visit Provider Internal Medicine Medical Oncology | DX: C50.312 Malignant neoplasm of lower-inner quadrant of left female breast (principal); Z17.1 Estrogen receptor negative status [ER-]; Z90.13 Acquired absence of bilateral breasts and nipples; G62.0 Drug-induced polyneuropathy; T45.1X5A Adverse effect of antineoplastic and immunosuppressive drugs, initial encounter; Z92.21 Personal history of antineoplastic chemotherapy; Z79.899 Other long term (current) drug therapy; C50.919 Malignant neoplasm of unspecified site of unspecified female breast ==

== ENCOUNTER 2022-04-24 12:04 | Oncology outpatient (recurring) (ONCR) | payer OTHER, MEDICAID, SELFPAY ==
[2022-04-24 13:51] LABS: Alanine Aminotransferase 19 U/L (0-33); Albumin Level 4.5 g/dL (3.5-5.2); Alkaline Phosphatase 82 U/L (35-105); Anion Gap 13.8 (5-19); Aspartate Amino Transferase 22 U/L (0-32); Blood Urea Nitrogen 10 mg/dL (6-20); Calcium 9.3 mg/dL (8.5-10.5); Carbon Dioxide 27 mmol/L (22-29); Chloride 102 mmol/L (98-107); Globulin 2.3 g/dL (1.3-4.6); Glomerular Filtration Rate 126.7 mL/min (90-130); Glucose 92 mg/dL (65-115); Osmolality Calculated 287 mOsm/kg (285-295); Potassium 3.8 mmol/L (3.5-5.1); Sodium 139 mmol/L (136-145); Total Bilirubin 0.2 mg/dL (0.15-1.2); Total Protein 6.8 g/dL (6.6-8.7)
== END 2022-05-10 23:59 | disposition home or self-care (01) ==
PROVIDERS: PCP Nurse Practitioner Family; Visit Provider Internal Medicine Medical Oncology
DX: Z90.13 Acquired absence of bilateral breasts and nipples; G62.0 Drug-induced polyneuropathy; T45.1X5A Adverse effect of antineoplastic and immunosuppressive drugs, initial encounter; Z92.21 Personal history of antineoplastic chemotherapy; Z79.899 Other long term (current) drug therapy; F41.9 Anxiety disorder, unspecified; Z08 Encounter for follow-up examination after completed treatment for malignant neoplasm; G89.29 Other chronic pain; M54.9 Dorsalgia, unspecified; M25.562 Pain in left knee; M25.561 Pain in right knee; K30 Functional dyspepsia; Z85.3 Personal history of malignant neoplasm of breast
CPT/HCPCS: 36415; 80053; 99214

== ENCOUNTER 2022-10-28 13:41 | Oncology outpatient (recurring) (ONCR) | payer OTHER, MEDICAID, SELFPAY | END 2022-11-07 23:59 | disposition home or self-care (01) | PROVIDERS: Absent Provider Internal Medicine Medical Oncology; PCP Nurse Practitioner Family; Visit Provider Nurse Practitioner Family | DX: C50.312 Malignant neoplasm of lower-inner quadrant of left female breast | CPT/HCPCS: 99213 ==

== ENCOUNTER 2023-04-20 12:50 | Oncology outpatient (recurring) (ONCR) | payer OTHER, MEDICAID, SELFPAY ==
[2023-04-20 12:56] VITALS: BP 131/83; PULSE 82; RESP 16; TEMP 36.9; O2SAT 96
[2023-04-20 13:13] LABS: Basophils % 0.6 %; Eosinophils % 0.8 %; Hematocrit 40.1 % (36-47); Lymphocytes # 1.4 10^3/uL (0.8-4.8); Lymphocytes % 26.6 %; Mean Corpuscular HGB Conc 32.9 g/dL (30-55); Mean Corpuscular Hemoglobin 31.1 pg (27-33); Mean Corpuscular Volume 94.4 fl (85-98); Mean Platelet Volume 10.3 fL (7.4-10.4); Monocytes # 0.5 10^3/uL (0.2-0.9); Neutrophils % 61.6 %; Nucleated Red Blood Cells % 0 %; Platelet Count 280 10^3/cmm (157-399); Red Blood Count 4.25 10^6/uL (3.85-5.65); Red Cell Distribution Width 11.8 % (12.1-15.1); White Blood Count 5.19 10^3/uL (3.29-11.43)
[2023-04-20 15:09] LABS: Alanine Aminotransferase 17 U/L (0-33); Albumin Level 4.7 g/dL (3.5-5.2); Alkaline Phosphatase 74 U/L (35-105); Anion Gap 12.8 (5-19); Aspartate Amino Transferase 18 U/L (0-32); Blood Urea Nitrogen 17 mg/dL (6-20); Calcium 9.2 mg/dL (8.5-10.5); Carbon Dioxide 27 mmol/L (22-29); Chloride 103 mmol/L (98-107); Globulin 2.2 g/dL (1.3-4.6); Glomerular Filtration Rate 102.3 mL/min (90-130); Glucose 89 mg/dL (65-115); Osmolality Calculated 289 mOsm/kg (285-295); Potassium 3.8 mmol/L (3.5-5.1); Sodium 139 mmol/L (136-145); Total Bilirubin 0.2 mg/dL (0.15-1.2); Total Protein 6.9 g/dL (6.6-8.7)
== END 2023-05-10 23:59 | disposition home or self-care (01) ==
LOC: ONCMED 12:50
PROVIDERS: Absent Provider Internal Medicine Medical Oncology; PCP Nurse Practitioner Family; Visit Provider Nurse Practitioner Family
DX: Z08 Encounter for follow-up examination after completed treatment for malignant neoplasm (principal); Z85.3 Personal history of malignant neoplasm of breast; Z90.13 Acquired absence of bilateral breasts and nipples; G62.0 Drug-induced polyneuropathy; T45.1X5A Adverse effect of antineoplastic and immunosuppressive drugs, initial encounter; Z92.21 Personal history of antineoplastic chemotherapy; Z79.899 Other long term (current) drug therapy; F41.9 Anxiety disorder, unspecified; G89.29 Other chronic pain; M54.9 Dorsalgia, unspecified; M25.562 Pain in left knee; M25.561 Pain in right knee; K30 Functional dyspepsia
CPT/HCPCS: 36415; 80053; 85025; 99213